=== PATIENT | female | born 1970 | race Two or more races ===

== ENCOUNTER → 2023-07-20 | Emergency (ER) | payer BC ==
[~2023-07-20] VITALS: Ht 165.1 cm; Wt 78.0 kg
[~2023-07-20] MED LIST: ASPERCREME1 EACH; ATENOLOL25 MG PO; CYMBALTA20 MG PO; DICLOFENAC SODI75 MG PO; FLEXERIL; NAPR500T14; NEXIUM2.5 MG PO; NORFLEX100MG PO; VALIUM; [UNRECOGNIZED DRUG - OTHER]
== END | disposition home or self-care (01) ==
LOC: ER 18:08
DX: M54.50 Low back pain, unspecified (principal); Z91.013 Allergy to seafood

== ENCOUNTER 2023-07-29 17:40 | Emergency (ER) | payer BC ==
[~2023-07-29] VITALS: Ht 160 cm; Wt 69.4 kg
[2023-07-29 18:55] LABS: HEMATOCRIT 40.5 % (36.0-45.00); HEMOGLOBIN 13.7 g/dL (12.0-15.00); MEAN CELL VOLUME 88.7 fL (80.00-100.00); MEAN CORPUSCULAR HEMOGLOBIN 29.9 pg (27.00-32.0); MEAN CORPUSCULAR HGB CONC 33.7 g/dl (32.0-36.0); PLATELET COUNT 282 K/uL (150-450); RED BLOOD COUNT 4.56 M/uL (4.00-6.00); RED CELL DISTRIBUTION WIDTH 13.7 % (11.5-14.5)
[2023-07-29 19:16] LABS: PARTIAL THROMBOPLASTIN TIME 25.1 SECONDS (22.0-34.0)
== END 2023-07-29 23:58 | disposition home or self-care (01) ==
LOC: ER 17:40
PROVIDERS: General Practice
DX: I16.0 Hypertensive urgency (principal); R04.0 Epistaxis; I10 Essential (primary) hypertension; Z91.013 Allergy to seafood

== ENCOUNTER 2024-07-22 14:25 | Emergency (ER) | payer BC ==
[~2024-07-22] VITALS: Ht 165.1 cm; Wt 80.3 kg
[~2024-07-22 14:25] MED LIST changes: +BETAMETHASONE D15 G2 TOP; +COZAAR25 MG; +CYCLOBENZAPRINE10 MG PO; +CYMBALTA60 MG PO; +LEXAPRO20 MG PO; +NABUMETONE750 MG PO; +PEPCID AC20 MG PO; +TENORMIN25 MG; +TENORMIN25 MG PO; +TUSNEL LIQUID178 ML PO; +ZITHROMAX500 MG PO; +ZOFRAN8 MG PO
[2024-07-22 15:07] VITALS: BP 145/85; O2SAT 100
[2024-07-22] MEDS ORDERED: KETOROLAC TROMETHAMINE 60 MG VIAL IM STA (16:44)
[2024-07-22] MEDS ORDERED: ORPHENADRINE CITRATE 30 MG/ML AMPUL IM STA (16:45)
[2024-07-22] MEDS ORDERED: ORPHENADRINE CITRATE 30 MG/ML AMPUL ONE (16:58)
[2024-07-22] MEDS ORDERED: KETOROLAC TROMETHAMINE 60 MG VIAL IM ONE (16:59)
[2024-07-22] MEDS ORDERED: BACLOFEN10 MG PO (17:49)
== END 2024-07-22 18:22 | disposition home or self-care (01) ==
LOC: ER 14:27
DX: M54.50 Low back pain, unspecified (principal); Z96.698 Presence of other orthopedic joint implants; Z91.013 Allergy to seafood

== ENCOUNTER 2025-09-19 19:27 | Emergency (ER) | payer OTHER ==
[~2025-09-19] VITALS: Ht 165.1 cm; Wt 72.6 kg
[~2025-09-19 19:27] MED LIST changes: +BACLOFEN10 MG PO
[2025-09-19 20:33] VITALS: BP 160/80; O2SAT 99
[2025-09-19] MEDS ORDERED: METHYLPREDNISOLONE SOD SUCC 125 MG VIAL IV ONE (20:45)
[2025-09-19] MEDS ORDERED: HYDROCODONE/CHLORPHEN P-STIREX 5 ML ML PO ONE (20:45)
[2025-09-19] MEDS ORDERED: IPRATROPIUM BROMIDE 0.5 MG/2.5 ML AMPUL.NEB IH SCH (20:45)
[2025-09-19] MEDS ORDERED: FAMOTIDINE/PF 20 MG in 0.9 % SODIUM CHLORIDE 8 ML IV PUSH ONE (20:45)
[2025-09-19] MEDS ORDERED: LEVALBUTEROL HCL 1.25 MG/3 ML SOLUTION IH SCH (20:45)
[2025-09-19] MEDS ORDERED: ACETAMINOPHEN 500 MG GEL..CAP PO ONE ×2 (20:45→21:03)
[2025-09-19] MEDS ORDERED: FAMOTIDINE/PF 20 MG/2 ML VIAL ONE (21:03)
[2025-09-19] MEDS ORDERED: METHYLPREDNISOLONE SOD SUCC 125 MG VIAL ONE (21:03)
[2025-09-19] MEDS ORDERED: IPRATROPIUM BROMIDE 0.5 MG/2.5 ML AMPUL.NEB IH ONE (21:11)
[2025-09-19] MEDS ORDERED: LEVALBUTEROL HCL 1.25 MG/3 ML SOLUTION IH ONE (21:11)
[2025-09-19 21:51] LABS: BASO % 0.4 % (0.1-1.2); EOS # 0.39 (0.04-0.54); EOS % 4.0 % (0.7-7.0); LYMPH # 4.21 (1.18-3.74); LYMPH % 43.2 % (19.3-53.1); MEAN PLATELET VOLUME 9.60 fl (9.4-12.4); MONO # 0.65 (0.24-0.82); MONO % 6.7 % (4.7-12.5); NEUT # 4.43 (1.56-6.13); NEUT % 45.5 % (34.0-71.1); RED CELL DISTRIBUTION WIDTH 12.1 % (11.6-14.4)
[2025-09-19 22:04] LABS: ALT/SGPT 25.0 U/L (12-78); AST/SGOT 29.0 U/L (15-37); BILIRUBIN TOTAL 0.35 mg/dL (0.3-1.2); BUN CREA RATIO 16.0 (7.0-25.0); CREATININE SERUM 0.77 mg/dL (0.55-1.02); GFR 77.83; GLOBULINA 4.1 G/DL (2.4-3.5); GLUCOSE FASTING 98.0 mg/dL (65-100); OSMOLALITY SERUM 283.0 MOSM/KG (275-295)
[2025-09-19 22:32] LABS: COVID-19 AG NEGATIVE (NEGATIVE)
[2025-09-19] MEDS ORDERED: IPRAT-ALBUT 0.5-3 ML IH (23:25)
[2025-09-19] MEDS ORDERED: ZITHROMAX500 MG PO (23:25)
[2025-09-19] MEDS ORDERED: SINGULAIR10 MG PO (23:25)
[2025-09-19] MEDS ORDERED: BENZONATATE200 M1 PO (23:25)
[2025-09-19] MEDS ORDERED: MUCINEX1200 MG PO (23:25)
== END 2025-09-20 00:22 | disposition home or self-care (01) ==
LOC: ER 19:28
PROVIDERS: General Practice
DX: B34.9 Viral infection, unspecified (principal); J45.909 Unspecified asthma, uncomplicated; R05.9 Cough, unspecified; R06.02 Shortness of breath; R51.9 Headache, unspecified; I10 Essential (primary) hypertension; Z20.822 Contact with and (suspected) exposure to COVID-19; Z91.013 Allergy to seafood

== ENCOUNTER 2025-10-31 21:44 | Emergency (ER) | payer OTHER ==
[~2025-10-31] VITALS: Ht 165.1 cm; Wt 79.4 kg
[~2025-10-31 21:44] MED LIST changes: +BENZONATATE200 M1 PO; +IPRAT-ALBUT 0.5-3 ML IH; +MUCINEX1200 MG PO; +SINGULAIR10 MG PO
[2025-10-31] MEDS ORDERED: SIMVASTATIN5 MG PO (23:55)
[2025-10-31] MEDS ORDERED: ACID REDUCER20 M1 PO (23:55)
[2025-10-31 23:58] VITALS: BP 160/80; O2SAT 98
[2025-11-01] MEDS ORDERED: DEXAMETHASONE SODIUM PHOSPHATE 4 MG/ML VIAL IM STA (00:12)
[2025-11-01] MEDS ORDERED: ORPHENADRINE CITRATE 30 MG/ML AMPUL IM STA (00:12)
[2025-11-01] MEDS ORDERED: KETOROLAC TROMETHAMINE 30 MG VIAL IM STA (00:12)
[2025-11-01] MEDS ORDERED: ORPHENADRINE CITRATE 30 MG/ML AMPUL ONE (01:04)
[2025-11-01] MEDS ORDERED: KETOROLAC TROMETHAMINE 30 MG VIAL ONE (01:05)
[2025-11-01] MEDS ORDERED: DEXAMETHASONE SODIUM PHOSPHATE 4 MG/ML VIAL ONE (01:05)
[2025-11-01] MEDS ORDERED: MEDROLPACK PO (01:53)
== END 2025-11-01 02:03 | disposition home or self-care (01) ==
LOC: ER 21:45
DX: S46.911A Strain of unspecified muscle, fascia and tendon at shoulder and upper arm level, right arm, initial encounter (principal); F32.89 Other specified depressive episodes; I10 Essential (primary) hypertension; E78.49 Other hyperlipidemia; Z91.013 Allergy to seafood